=== PATIENT | female | born 1935 | race Caucasian/White ===

== ENCOUNTER → 2017-01-10 | Outpatient (CLI) | payer MEDICARE, OTHER ==
--- NOTE | 2017-01-10 14:53 | US ---
EXAM DESCRIPTION: Thyroid CLINICAL HISTORY: 81 years, Female, NODULE COMPARISON: None. TECHNIQUE: Multiple real-time sonographic images were obtained of the thyroid. FINDINGS: The right lobe demonstrates a large heterogenous mass with mostly well-defined hypoechoic borders. And small areas of cystic changes seen. The mass measures 3.6 x 2 x 1.4 cm in the midpole The left lobe demonstrates no mass, cyst, or calcifications. The right lobe measures five cm in length by 1.9 x 2.4 cm. The left lobe measures 2.6 cm in length by 0.7 x 0.7 cm. And the isthmus measures X mm in thickness. Surrounding soft tissues are unremarkable. IMPRESSION: Large mass in the mid right lobe of the thyroid. Recommend ultrasound-guided biopsy Electronically signed by: Flip Carranza MD 01/10/2017 2:53 PM CDT
== END ==
LOC: US 10:45
PROVIDERS: ATTEND Family Medicine
DX: E04.1 Nontoxic single thyroid nodule (principal); E03.9 Hypothyroidism, unspecified

== ENCOUNTER → 2017-05-08 | Outpatient (CLI) | payer MEDICARE, OTHER | LOC: GMA 16:39 | PROVIDERS: ATTEND Nurse Practitioner Family | DX: R06.02 Shortness of breath (principal); R05 Cough; R53.81 Other malaise; M79.89 Other specified soft tissue disorders ==

== ENCOUNTER → 2017-06-21 | Outpatient (CLI) | payer MEDICARE, OTHER | END | disposition home or self-care (01) | LOC: GMAJ 15:09 | PROVIDERS: ATTEND Family Medicine | DX: D50.8 Other iron deficiency anemias (principal) ==

== ENCOUNTER → 2020-12-02 | Outpatient (CLI) | payer MEDICARE, OTHER | LOC: BFHH 11:27 | PROVIDERS: ATTEND Family Medicine | DX: N39.0 Urinary tract infection, site not specified (principal); G30.9 Alzheimer's disease, unspecified ==